=== PATIENT | male | born 1985 | race African-American/Black ===

== ENCOUNTER 2021-09-25 05:17 | Observation (INO) ==
--- NOTE | 2021-09-25 05:26 | DR.GENAD ---
HPI <Ruba Szmyanski - Last Filed: 09/25/21 07:59> Time Seen Time Seen by Provider: 09/25/21 05:26 HPI Comment HPI Comment: Brought in by ems after "freaking out" in car with his earlier this morning; started when his heart started racing and he felt lightheaded and shaky; still feeling this way with sob; no cp, cough, fever, chills, abd pain, n/v/d; admits doing cocaine yesterday and says he drinks quite a bit of caffeine especially mt dew, the last of which he had just prior to arrival ROS <Ruba Szymanski - Last Filed: 09/25/21 07:59> Review of Systems Constitutional: No Symptoms Reported Eyes: No Symptoms Reported ENTM: No Symptoms Reported Respiratoy: No Symptoms Reported Cardiovascular: No Symptoms Reported Gastrointestinal/Abdominal: No Symptoms Reported Genitourinary: No Symptoms Reported Neurological: No Symptoms Reported Musculoskeletal: No Symptoms Reported Integumentary: No Symptoms Reported Hematologic/Lymphatic: No Symptoms Reported Endocrine: No Symptoms Reported Psychiatric: No Symptoms Reported PE <Ruba Szymanski - Last Filed: 09/25/21 07:59> Vital Signs Vitals: Temperature 97.6 F Pulse Rate 108 Respiratory Rate 19 Blood Pressure 167/84 O2 Sat by Pulse Oximetry 100 General Limitations: No Limitations General Appearance: Alert and In No Apparent Distress Head Head Exam: Normal Inspection Eyes Eye exam: Normal Appearance ENT ENT Exam: Normal Exam External Ear Exam: Normal External Inspection TM/Canal Exam: Bilateral: Normal Nose Exam: Normal Nose Exam Mouth Exam: Normal Inspection Throat Exam: Normal Inspection Neck Neck Exam: Normal Inspection Chest Chest Inspection: Normal Inspection Respiratory Respiratory Exam: Normal Lung Sounds Bilat Respiratory Exam: Bilateral: Clear to Auscultation Cardiovascular Cardiovascular Exam: Regular Rate and Normal Rhythm Abdominal Exam Abdominal Exam: Normal Inspection, Normal Bowel Sounds and Soft Extremities Extremities Exam: Normal Inspection Back Back Exam: Normal Inspection Neurologic Neurological Exam: Alert and Oriented X3 Psychiatric Psychiatric Exam: Normal Affect and Normal Mood Skin Skin Exam: Warm, Dry, Intact and Normal Color <RUPALI SOBOWALE - Last Filed: 09/25/21 11:29> Vital Signs Vitals: Temperature 97.6 F Pulse Rate 108 Respiratory Rate 19 Blood Pressure 167/84 O2 Sat by Pulse Oximetry 100 COURSE <Ruba Szymanski - Last Filed: 09/25/21 07:59> Treatment Treatment: [address] Cotton: 36 y/o with palpitations, sob, anxiety and shakiness this morning after doing cocaine and methamphetamine yesterday; troponin positive; ativan 1mg given; sched for repeat troponin at 10 AM <RUPALI COTTON - Last Filed: 09/25/21 11:29> Education/Counseling Education/Counseling: Patient, Education and Counseling Educated On: Treatment, Diagnosis, Prognosis and Needs for Follow Up ROR <Ruba Szymanski - Last Filed: 09/25/21 07:59> Labs Reviewed Result Diagrams: 09/25/21 06:05 09/25/21 06:05 Laboratory: WBC 9.6 X10^3/uL (3.6-10.0) 09/25/21 06:05 RBC 5.48 X10^6/uL (4.7-6.0) 09/25/21 06:05 Hgb 15.3 g/dL (13.5-18.0) 09/25/21 06:05 Hct 46.6 % (42.0-54.0) 09/25/21 06:05 MCV 85.0 fL (80.0-100.0) 09/25/21 06:05 MCH 27.9 pg (27.0-34.0) 09/25/21 06:05 MCHC 32.8 g/dL (33.0-35.0) L 09/25/21 06:05 RDW 13.4 % (11.6-16.5) 09/25/21 06:05 Plt Count 244 X10^3/uL (150.0-450.0) 09/25/21 06:05 Plt Count Comment Adequate (ADEQUATE) 09/25/21 06:05 MPV 8.8 fL (7.4-11.0) 09/25/21 06:05 Neut % (Auto) 67.1 % (42.0-75.0) 09/25/21 06:05 Lymph % (Auto) 24.8 % (21.0-51.0) 09/25/21 06:05 [place] % (Auto) 5.9 % (0.0-13.0) 09/25/21 06:05 Eos % (Auto) 1.4 % (0.9-2.9) 09/25/21 06:05 Baso % (Auto) 0.8 % (0.2-1.0) 09/25/21 06:05 Neut # (Auto) 6.5 x10^3/uL (2.2-4.8) H 09/25/21 06:05 Lymph # (Auto) 2.4 X10^3/uL (1.3-2.9) 09/25/21 06:05 [place] # (Auto) 0.6 x10^3/uL (0.3-0.8) 09/25/21 06:05 Eos # (Auto) 0.1 x10^3/uL (0.0-0.2) 09/25/21 06:05 Baso # (Auto) 0.1 X10^3/uL (0.0-0.1) 09/25/21 06:05 Absolute Nucleated RBC 0.0 /100WBC 09/25/21 06:05 Plt Morphology Comment Normal (NORMAL) 09/25/21 06:05 RBC Morphology Normal (NORMAL) 09/25/21 06:05 Sodium 141 mmol/L (136-145) 09/25/21 06:05 Corrected Sodium 143 mmol/L (136-145) 09/25/21 06:05 Potassium 3.8 mmol/L (3.5-5.1) 09/25/21 06:05 Chloride 101 mmol/L (98-107) 09/25/21 06:05 Carbon Dioxide 23.9 mmol/L (21-32) 09/25/21 06:05 BUN 13 mg/dL (7-18) 09/25/21 06:05 Creatinine 1.22 mg/dL (0.70-1.30) 09/25/21 06:05 Est GFR (MDRD) Af Amer > 60 (>60) 09/25/21 06:05 Est GFR (MDRD) Non-Af > 60 (>60) 09/25/21 06:05 Glucose 167 mg/dL (65-99) H 09/25/21 06:05 Calcium 9.3 mg/dL (8.5-10.1) 09/25/21 06:05 Corrected Calcium TNP 09/25/21 06:05 Total Bilirubin 0.40 mg/dL (0.2-1.0) 09/25/21 06:05 AST 27 Units/L (15-37) 09/25/21 06:05 ALT 28 Units/L (12-78) 09/25/21 06:05 Alkaline Phosphatase 109 Units/L (46-116) 09/25/21 06:05 Creatine Kinase 335 Units/L (39-308) H 09/25/21 10:30 CK-MB (CK-2) 3.4 ng/mL (0-4.0) 09/25/21 10:30 CK/CKMB % Calc 1.0 % (<4) 09/25/21 10:30 Troponin I High Sens 409.5 ng/L (4.0-60.0) H* 09/25/21 10:30 Total Protein 7.5 g/dL (6.4-8.2) 09/25/21 06:05 Albumin 4.0 g/dL (3.4-5.0) 09/25/21 06:05 Globulin 3.5 g/dL (2.5-4.5) 09/25/21 06:05 Albumin/Globulin Ratio 1.1 Ratio (1.1-2.1) 09/25/21 06:05 Urine Opiates Screen Negative (NEG=<300) 09/25/21 05:55 Urine Methadone Screen Negative (NEG=<300) 09/25/21 05:55 Ur Barbiturates Screen Negative (NEG=<200) 09/25/21 05:55 Ur Phencyclidine Scrn Negative (NEG=<25) 09/25/21 05:55 Ur Amphetamines Screen Positive (NEG=<1000) 09/25/21 05:55 U Benzodiazepines Scrn Negative (NEG=<200) 09/25/21 05:55 Urine Cocaine Screen Positive (NEG=<300) 09/25/21 05:55 U Marijuana (THC) Screen Negative (NEG=<50) 09/25/21 05:55 SARS CoV-2 RNA Rapid KINGA Negative (NEGATIVE) 09/25/21 07:26 <ADEWUNMI SOBOWALE - Last Filed: 09/25/21 11:29> Labs Reviewed Laboratory: WBC 9.6 X10^3/uL (3.6-10.0) 09/25/21 06:05 RBC 5.48 X10^6/uL (4.7-6.0) 09/25/21 06:05 Hgb 15.3 g/dL (13.5-18.0) 09/25/21 06:05 Hct 46.6 % (42.0-54.0) 09/25/21 06:05 MCV 85.0 fL (80.0-100.0) 09/25/21 06:05 MCH 27.9 pg (27.0-34.0) 09/25/21 06:05 MCHC 32.8 g/dL (33.0-35.0) L 09/25/21 06:05 RDW 13.4 % (11.6-16.5) 09/25/21 06:05 Plt Count 244 X10^3/uL (150.0-450.0) 09/25/21 06:05 Plt Count Comment Adequate (ADEQUATE) 09/25/21 06:05 MPV 8.8 fL (7.4-11.0) 09/25/21 06:05 Neut % (Auto) 67.1 % (42.0-75.0) 09/25/21 06:05 Lymph % (Auto) 24.8 % (21.0-51.0) 09/25/21 06:05 [place] % (Auto) 5.9 % (0.0-13.0) 09/25/21 06:05 Eos % (Auto) 1.4 % (0.9-2.9) 09/25/21 06:05 Baso % (Auto) 0.8 % (0.2-1.0) 09/25/21 06:05 Neut # (Auto) 6.5 x10^3/uL (2.2-4.8) H 09/25/21 06:05 Lymph # (Auto) 2.4 X10^3/uL (1.3-2.9) 09/25/21 06:05 [place] # (Auto) 0.6 x10^3/uL (0.3-0.8) 09/25/21 06:05 Eos # (Auto) 0.1 x10^3/uL (0.0-0.2) 09/25/21 06:05 Baso # (Auto) 0.1 X10^3/uL (0.0-0.1) 09/25/21 06:05 Absolute Nucleated RBC 0.0 /100WBC 09/25/21 06:05 Plt Morphology Comment Normal (NORMAL) 09/25/21 06:05 RBC Morphology Normal (NORMAL) 09/25/21 06:05 Sodium 141 mmol/L (136-145) 09/25/21 06:05 Corrected Sodium 143 mmol/L (136-145) 09/25/21 06:05 Potassium 3.8 mmol/L (3.5-5.1) 09/25/21 06:05 Chloride 101 mmol/L (98-107) 09/25/21 06:05 Carbon Dioxide 23.9 mmol/L (21-32) 09/25/21 06:05 BUN 13 mg/dL (7-18) 09/25/21 06:05 Creatinine 1.22 mg/dL (0.70-1.30) 09/25/21 06:05 Est GFR (MDRD) Af Amer > 60 (>60) 09/25/21 06:05 Est GFR (MDRD) Non-Af > 60 (>60) 09/25/21 06:05 Glucose 167 mg/dL (65-99) H 09/25/21 06:05 Calcium 9.3 mg/dL (8.5-10.1) 09/25/21 06:05 Corrected Calcium TNP 09/25/21 06:05 Total Bilirubin 0.40 mg/dL (0.2-1.0) 09/25/21 06:05 AST 27 Units/L (15-37) 09/25/21 06:05 ALT 28 Units/L (12-78) 09/25/21 06:05 Alkaline Phosphatase 109 Units/L (46-116) 09/25/21 06:05 Creatine Kinase 335 Units/L (39-308) H 09/25/21 10:30 CK-MB (CK-2) 3.4 ng/mL (0-4.0) 09/25/21 10:30 CK/CKMB % Calc 1.0 % (<4) 09/25/21 10:30 Troponin I High Sens 409.5 ng/L (4.0-60.0) H* 09/25/21 10:30 Total Protein 7.5 g/dL (6.4-8.2) 09/25/21 06:05 Albumin 4.0 g/dL (3.4-5.0) 09/25/21 06:05 Globulin 3.5 g/dL (2.5-4.5) 09/25/21 06:05 Albumin/Globulin Ratio 1.1 Ratio (1.1-2.1) 09/25/21 06:05 Urine Opiates Screen Negative (NEG=<300) 09/25/21 05:55 Urine Methadone Screen Negative (NEG=<300) 09/25/21 05:55 Ur Barbiturates Screen Negative (NEG=<200) 09/25/21 05:55 Ur Phencyclidine Scrn Negative (NEG=<25) 09/25/21 05:55 Ur Amphetamines Screen Positive (NEG=<1000) 09/25/21 05:55 U Benzodiazepines Scrn Negative (NEG=<200) 09/25/21 05:55 Urine Cocaine Screen Positive (NEG=<300) 09/25/21 05:55 U Marijuana (THC) Screen Negative (NEG=<50) 09/25/21 05:55 SARS CoV-2 RNA Rapid KINGA Negative (NEGATIVE) 09/25/21 07:26 EKG Rate: 109 [place]: Normal Rhythm: NSR Block: None Hypertrophy: LVH ST: Normal Opioid <Ruba Szymanski - Last Filed: 09/25/21 07:59> Opioid Risk Tool Total: 0 Total Score Risk Category: Low Risk Copyright: [place] [facility]AY predicting aberrant behaviors <RUPALI COTTON - Last Filed: 09/25/21 11:29> Opioid Risk Tool Total: 0 Total Score Risk Category: Low Risk <Ruba Szymanski - Last Filed: 09/25/21 07:59> Diagnosis Discharge Problem: Palpitations, Anxiety, Methamphetamine abuse, Cocaine abuse Chest pain Qualifiers: Chest pain type: other chest pain Qualified Code(s): R07.89 - Other chest pain Instructions Forms: Precautions for COVID19 [facility] Social Distancing
[2021-09-25 05:37] VITALS: BMI 28.9
[2021-09-25 06:20] LABS: BASOPHILS # (AUTO) 0.1 X10^3/uL (0.0-0.1); BASOPHILS % (AUTO) 0.8 % (0.2-1.0); EOSINOPHILS # (AUTO) 0.1 x10^3/uL (0.0-0.2); EOSINOPHILS % (AUTO) 1.4 % (0.9-2.9); HEMATOCRIT 46.6 % (42.0-54.0); HEMOGLOBIN 15.3 g/dL (13.5-18.0); LYMPHOCYTES # (AUTO) 2.4 X10^3/uL (1.3-2.9); LYMPHOCYTES % (AUTO) 24.8 % (21.0-51.0); MEAN CORPUSCULAR HEMOGLOBIN 27.9 pg (27.0-34.0); MEAN CORPUSCULAR HGB CONC 32.8 g/dL (33.0-35.0); MEAN PLATELET VOLUME 8.8 fL (7.4-11.0); MONOCYTES # (AUTO) 0.6 x10^3/uL (0.3-0.8); MONOCYTES % (AUTO) 5.9 % (0.0-13.0); NEUTROPHILS # (AUTO) 6.5 x10^3/uL (2.2-4.8); NEUTROPHILS % (AUTO) 67.1 % (42.0-75.0); PLATELET COUNT 244 X10^3/uL (150.0-450.0); RED BLOOD COUNT 5.48 X10^6/uL (4.7-6.0); RED CELL DISTRIBUTION WIDTH 13.4 % (11.6-16.5); WHITE BLOOD COUNT 9.6 X10^3/uL (3.6-10.0)
[2021-09-25 06:23] LABS: ALANINE AMINOTRANSFERASE 28 Units/L (12-78); ALKALINE PHOSPHATASE 109 Units/L (46-116); ASPARTATE AMINO TRANSFERASE 27 Units/L (15-37); BLOOD UREA NITROGEN 13 mg/dL (7-18); CALCIUM 9.3 mg/dL (8.5-10.1); CARBON DIOXIDE 23.9 mmol/L (21-32); CHLORIDE 101 mmol/L (98-107); COR NA(FOR HYPERGLY) 143 mmol/L (136-145); CREATININE 1.22 mg/dL (0.70-1.30); SODIUM 141 mmol/L (136-145); TOTAL PROTEIN 7.5 g/dL (6.4-8.2); eGFR NON BLACK RACES > 60 (>60)
[2021-09-25] MEDS ORDERED: ATIVAN INJ 2 MG VIAL IVP STA (06:45)
[2021-09-25 06:52] LABS: PLATELET MORPHOLOGY COMMENT NORMAL (NORMAL)
[2021-09-25] MEDS ORDERED: ATIVAN INJ 2 MG VIAL ONE (07:08)
[2021-09-25 07:13] LABS: CREATINE KINASE MB 3.9 ng/mL (0-4.0)
[2021-09-25 11:10] LABS: CREATINE KINASE MB 3.4 ng/mL (0-4.0)
[2021-09-25] MEDS ORDERED: NITROSTAT SL PRN (13:12)
[2021-09-25] MEDS: NS 1,000 ML IV 1,000 ML IV SCH (13:17)
[2021-09-25] MEDS: CARDIZEM CD 120 MG 24-HR PO SCH (13:17)
[2021-09-25] MEDS ORDERED: NITRO-BID OINT 2% UD (E.R. USE ONLY) TOP PRN (13:20)
--- NOTE | 2021-09-25 14:49 | DR.H&P ---
H&P History & Physical for Day of: H&P Date: 09/25/21 Chief Complaint Chief Complaint: palpitations, anxiety, dyspnea Allergies Allergies Allergy/AdvReac Type Severity Reaction Status Date / Time No Known Drug Allergies Allergy Verified 09/25/21 05:37 History of Present Illness History of Present Illness: Mr Starkey is a 36y/o male with no pertinent medical hx presented to the ER after having an episode while driving to work. He felt "weird" with heart racing, shortness of breath and anxiety. He states it felt like a panic attack. It lasted 20 mins or so. Denied chest pain or pressure, no N/V, no diaphoresis. Patient reports having a panic attack in the p ast. Denies cardiac hx, no prior work up. He reports being told in the past that he has HTN but never treated. He has no PCP. He is a smoker and also uses cocaine, last use yesterday. He has never been hospitalized for chest pain or cocaine related incidents. ER work up - Patient was noted to be very anxious on arrival and given ativan. - Trop: elevated 75, 2nd: 409 CK elevated 396-> 335 Glucose 167 - UDS positive for cocaine +meth - EKG did not show any acute ST changes Patient was monitored on tele in the ER for a while. Dr Cason was consulted and advised Plan: Admit to telemetry, repeat EKG and trend cardiac enzymes. Echo ordered. Add CXR. Follow Dr Cason's recommendations. Discussed treatment plan with patient. Denies chest pain or pressure, SOB at this time. Monitor AM labs and imaging. Past Medical History Past Medical History: Anxiety and Hypertension Past Surgical History Surgical History: No History Family History Family Medical History: [place] Social History Does patient currently use any type of tobacco product: Yes Have you used tobacco products in the last 12 months: Yes Type of Tobacco Use: Cigarettes Packs per day or dips/chews per day: 1 Does any household member use tobacco: No Alcohol Use: Other Drug Use: Cocaine and Methamphetamine Prescription drug monitoring program results: PDMP reviewed and no concerns identified Medications Home Medications: No Known Drug Allergies Allergy (Verified 09/25/21 05:37) CONTINUE taking the following medications NK 09/25/21 [History] Labs Result Diagrams: 09/25/21 06:05 09/25/21 06:05 Labs: Laboratory WBC 9.6 X10^3/uL (3.6-10.0) 09/25/21 06:05 RBC 5.48 X10^6/uL (4.7-6.0) 09/25/21 06:05 Hgb 15.3 g/dL (13.5-18.0) 09/25/21 06:05 Hct 46.6 % (42.0-54.0) 09/25/21 06:05 MCV 85.0 fL (80.0-100.0) 09/25/21 06:05 MCH 27.9 pg (27.0-34.0) 09/25/21 06:05 MCHC 32.8 g/dL (33.0-35.0) L 09/25/21 06:05 RDW 13.4 % (11.6-16.5) 09/25/21 06:05 Plt Count 244 X10^3/uL (150.0-450.0) 09/25/21 06:05 Plt Count Comment Adequate (ADEQUATE) 09/25/21 06:05 MPV 8.8 fL (7.4-11.0) 09/25/21 06:05 Neut % (Auto) 67.1 % (42.0-75.0) 09/25/21 06:05 Lymph % (Auto) 24.8 % (21.0-51.0) 09/25/21 06:05 [place] % (Auto) 5.9 % (0.0-13.0) 09/25/21 06:05 Eos % (Auto) 1.4 % (0.9-2.9) 09/25/21 06:05 Baso % (Auto) 0.8 % (0.2-1.0) 09/25/21 06:05 Neut # (Auto) 6.5 x10^3/uL (2.2-4.8) H 09/25/21 06:05 Lymph # (Auto) 2.4 X10^3/uL (1.3-2.9) 09/25/21 06:05 [place] # (Auto) 0.6 x10^3/uL (0.3-0.8) 09/25/21 06:05 Eos # (Auto) 0.1 x10^3/uL (0.0-0.2) 09/25/21 06:05 Baso # (Auto) 0.1 X10^3/uL (0.0-0.1) 09/25/21 06:05 Absolute Nucleated RBC 0.0 /100WBC 09/25/21 06:05 Plt Morphology Comment Normal (NORMAL) 09/25/21 06:05 RBC Morphology Normal (NORMAL) 09/25/21 06:05 Sodium 141 mmol/L (136-145) 09/25/21 06:05 Corrected Sodium 143 mmol/L (136-145) 09/25/21 06:05 Potassium 3.8 mmol/L (3.5-5.1) 09/25/21 06:05 Chloride 101 mmol/L (98-107) 09/25/21 06:05 Carbon Dioxide 23.9 mmol/L (21-32) 09/25/21 06:05 BUN 13 mg/dL (7-18) 09/25/21 06:05 Creatinine 1.22 mg/dL (0.70-1.30) 09/25/21 06:05 Est GFR (MDRD) Af Amer > 60 (>60) 09/25/21 06:05 Est GFR (MDRD) Non-Af > 60 (>60) 09/25/21 06:05 Glucose 167 mg/dL (65-99) H 09/25/21 06:05 Calcium 9.3 mg/dL (8.5-10.1) 09/25/21 06:05 Corrected Calcium TNP 09/25/21 06:05 Total Bilirubin 0.40 mg/dL (0.2-1.0) 09/25/21 06:05 AST 27 Units/L (15-37) 09/25/21 06:05 ALT 28 Units/L (12-78) 09/25/21 06:05 Alkaline Phosphatase 109 Units/L (46-116) 09/25/21 06:05 Creatine Kinase 335 Units/L (39-308) H 09/25/21 10:30 CK-MB (CK-2) 3.4 ng/mL (0-4.0) 09/25/21 10:30 CK/CKMB % Calc 1.0 % (<4) 09/25/21 10:30 Troponin I High Sens 409.5 ng/L (4.0-60.0) H* 09/25/21 10:30 Total Protein 7.5 g/dL (6.4-8.2) 09/25/21 06:05 Albumin 4.0 g/dL (3.4-5.0) 09/25/21 06:05 Globulin 3.5 g/dL (2.5-4.5) 09/25/21 06:05 Albumin/Globulin Ratio 1.1 Ratio (1.1-2.1) 09/25/21 06:05 Urine Opiates Screen Negative (NEG=<300) 09/25/21 05:55 Urine Methadone Screen Negative (NEG=<300) 09/25/21 05:55 Ur Barbiturates Screen Negative (NEG=<200) 09/25/21 05:55 Ur Phencyclidine Scrn Negative (NEG=<25) 09/25/21 05:55 Ur Amphetamines Screen Positive (NEG=<1000) 09/25/21 05:55 U Benzodiazepines Scrn Negative (NEG=<200) 09/25/21 05:55 Urine Cocaine Screen Positive (NEG=<300) 09/25/21 05:55 U Marijuana (THC) Screen Negative (NEG=<50) 09/25/21 05:55 SARS CoV-2 RNA Rapid KINGA Negative (NEGATIVE) 09/25/21 07:26 Review of Systems Constitutional: No Symptoms Reported Eyes: No Symptoms Reported ENT: No Symptoms Reported Respiratory: Shortness of Breath Cardiovascular: Palpitations Gastrointestinal: No Symptoms Reported Genitourinary: No Symptoms Reported Musculoskeletal: No Symptoms Reported Skin: No Symptoms Reported Neurological: No Symptoms Reported Physical Exam Vital Signs: Temperature 97.6 F Pulse Rate 100 Respiratory Rate 24 Blood Pressure 162/83 O2 Sat by Pulse Oximetry 100 Oriented: Normal Eyes: Normal Ear: Normal Nose: Normal Throat: Normal Respiratory: Clear Throughout Cardiovascular: Normal and Tachycardia; negative Edema Auscultation: Bowel Sounds: Normal Palpation: Normal Tenderness: Normal Skin: Normal Musculoskeletal: Normal Psychiatric: Normal Mood Description: Calm Affect: Normal Speech Pattern: Clear and Appropriate Assessment/Plan (1) Palpitations: Status: Acute (2) Anxiety: Status: Acute (3) Methamphetamine abuse: Status: Acute (4) Cocaine abuse: Status: Acute (5) HTN (hypertension): Qualifiers: Hypertension type: primary hypertension Qualified Code(s): I10 - Essential (primary) hypertension Status: Acute (6) Tobacco use: Status: Acute Review H&P Reviewed: Yes Patient was examined?: Yes
[2021-09-25 16:25] LABS: HEMOGLOBIN A1C 5.5 %
[2021-09-25 16:53] LABS: CKMB % 1.2 % (<4); CREATINE KINASE MB 3.6 ng/mL (0-4.0)
[2021-09-25 17:03] LABS: CHOL/HDL RATIO 2.8 (0.0-5.0)
--- NOTE | 2021-09-25 17:07 | RAD ---
EXAM: CHEST X-RAYHISTORY: Shortness of breath. Abnormal cardiac enzymes.TECHNIQUE: AP CXR dated September 25, 2021 at 2:50 PM.COMPARISON: None available.FINDINGS:The heart size and mediastinum are within normal limits. The lung kebede and costophrenic angles are clear. There is no acute parenchymal infiltrate, pleural effusion, or pneumothorax seen. The visualized bony structures are within normal limits.IMPRESSION:1. No evidence for acute cardiopulmonary disease seen.Electronically signed by: Anshu Aiken (Sep 25, 2021 17:05:50)
[2021-09-25] MEDS ORDERED: TYLENOL 325 MG TAB PO PRN (20:50)
[2021-09-25 23:15] LABS: CKMB % 0.9 % (<4); CREATINE KINASE MB 2.2 ng/mL (0-4.0)
[2021-09-26] MEDS: NS 1,000 ML IV 1,000 ML IV SCH (01:05)
[2021-09-26 06:56] LABS: ALANINE AMINOTRANSFERASE 25 Units/L (12-78); ALBUMIN 3.2 g/dL (3.4-5.0); ALKALINE PHOSPHATASE 92 Units/L (46-116); ASPARTATE AMINO TRANSFERASE 22 Units/L (15-37); BLOOD UREA NITROGEN 13 mg/dL (7-18); CALCIUM 8.6 mg/dL (8.5-10.1); CARBON DIOXIDE 29.1 mmol/L (21-32); CHLORIDE 106 mmol/L (98-107); COR CA(FOR HYPOALB) 9.2 mg/dL (8.5-10.1); CREATININE 0.87 mg/dL (0.70-1.30); SODIUM 141 mmol/L (136-145); TOTAL PROTEIN 6.3 g/dL (6.4-8.2); eGFR NON BLACK RACES > 60 (>60)
[2021-09-26 06:58] LABS: BASOPHILS % (AUTO) 0.5 % (0.2-1.0); EOSINOPHILS # (AUTO) 0.2 x10^3/uL (0.0-0.2); EOSINOPHILS % (AUTO) 3.3 % (0.9-2.9); HEMATOCRIT 41.2 % (42.0-54.0); HEMOGLOBIN 13.7 g/dL (13.5-18.0); LYMPHOCYTES # (AUTO) 1.5 X10^3/uL (1.3-2.9); LYMPHOCYTES % (AUTO) 22.6 % (21.0-51.0); MEAN CORPUSCULAR HEMOGLOBIN 27.9 pg (27.0-34.0); MEAN CORPUSCULAR HGB CONC 33.2 g/dL (33.0-35.0); MEAN CORPUSCULAR VOLUME 84.1 fL (80.0-100.0); MEAN PLATELET VOLUME 8.9 fL (7.4-11.0); MONOCYTES # (AUTO) 0.5 x10^3/uL (0.3-0.8); MONOCYTES % (AUTO) 7.6 % (0.0-13.0); NEUTROPHILS # (AUTO) 4.4 x10^3/uL (2.2-4.8); PLATELET COUNT 203 X10^3/uL (150.0-450.0); RED CELL DISTRIBUTION WIDTH 13.4 % (11.6-16.5); WHITE BLOOD COUNT 6.7 X10^3/uL (3.6-10.0)
[2021-09-26 08:07] LABS: PLATELET MORPHOLOGY COMMENT ABNORMAL (NORMAL)
[2021-09-26 08:08] LABS: GIANT PLATELET FEW
--- NOTE | 2021-09-26 08:20 | W.DIS.FURT ---
Summary of Discharge Admission Diagnosis Patient Problems (Updated 09/25/21 @ 15:19 by Angelita Betancourt) Chest pain (Acute) R07.9 Palpitations (Acute) R00.2 Anxiety (Acute) F41.9 Methamphetamine abuse (Acute) F15.10 Cocaine abuse (Acute) F14.10 Vital Signs: Vital Signs (72 hours) 09/25/21 05:18 09/25/21 06:31 09/25/21 07:01 Temperature 97.6 F Pulse Rate 128 H Respiratory Rate 16 Blood Pressure 141/86 152/111 156/60 O2 Sat by Pulse Oximetry 100 09/25/21 07:11 09/25/21 07:13 09/25/21 07:15 Temperature Pulse Rate 124 H 123 H 121 H Respiratory Rate 30 H 66 H 94 H Blood Pressure 167/84 O2 Sat by Pulse Oximetry 100 100 100 09/25/21 07:30 09/25/21 07:45 09/25/21 08:00 Temperature Pulse Rate 123 H 122 H 123 H Respiratory Rate 28 H 21 45 H Blood Pressure O2 Sat by Pulse Oximetry 100 99 100 09/25/21 08:15 09/25/21 08:30 09/25/21 08:45 Temperature Pulse Rate 116 H 113 H 115 H Respiratory Rate 23 35 H 16 Blood Pressure O2 Sat by Pulse Oximetry 96 99 99 09/25/21 09:00 09/25/21 09:15 09/25/21 09:30 Temperature Pulse Rate 113 H 111 H 112 H Respiratory Rate 26 H 24 20 Blood Pressure O2 Sat by Pulse Oximetry 99 100 100 09/25/21 09:45 09/25/21 10:00 09/25/21 10:15 Temperature Pulse Rate 112 H 116 H 110 H Respiratory Rate 35 H 30 H 29 H Blood Pressure O2 Sat by Pulse Oximetry 100 100 100 09/25/21 10:30 09/25/21 10:39 09/25/21 10:45 Temperature Pulse Rate 108 H 109 H 108 H Respiratory Rate 19 21 32 H Blood Pressure 139/72 O2 Sat by Pulse Oximetry 100 100 100 09/25/21 11:00 09/25/21 11:15 09/25/21 11:30 Temperature Pulse Rate 104 H 101 H 104 H Respiratory Rate 22 33 H 22 Blood Pressure 145/72 146/71 O2 Sat by Pulse Oximetry 99 100 100 09/25/21 11:45 09/25/21 12:00 09/25/21 12:15 Temperature Pulse Rate 105 H 102 H 100 H Respiratory Rate 39 H 22 24 Blood Pressure 162/83 O2 Sat by Pulse Oximetry 100 100 100 09/25/21 12:42 09/25/21 13:00 09/25/21 14:00 Temperature 98.1 F Pulse Rate 94 H 91 H 80 Respiratory Rate 19 14 16 Blood Pressure 162/79 158/79 125/55 O2 Sat by Pulse Oximetry 99 99 98 09/25/21 15:00 09/25/21 16:00 09/25/21 17:00 Temperature 98.2 F Pulse Rate 89 90 94 H Respiratory Rate 14 14 22 Blood Pressure 139/79 151/82 144/74 O2 Sat by Pulse Oximetry 100 100 100 09/25/21 18:00 09/25/21 19:00 09/25/21 20:00 Temperature 98.8 F Pulse Rate 79 81 60 Respiratory Rate 16 15 15 Blood Pressure 154/72 153/73 127/60 O2 Sat by Pulse Oximetry 94 L 100 99 09/25/21 21:00 09/25/21 21:13 09/25/21 22:00 Temperature Pulse Rate 72 71 Respiratory Rate 17 14 14 Blood Pressure 143/71 150/65 O2 Sat by Pulse Oximetry 100 100 09/25/21 22:13 09/25/21 23:00 09/26/21 00:00 Temperature 98.8 F Pulse Rate 58 L 76 Respiratory Rate 15 15 19 Blood Pressure 117/56 113/81 O2 Sat by Pulse Oximetry 100 100 09/26/21 01:00 09/26/21 02:00 09/26/21 03:00 Temperature Pulse Rate 57 L 64 75 Respiratory Rate 13 15 14 Blood Pressure 135/60 131/60 134/67 O2 Sat by Pulse Oximetry 100 100 100 09/26/21 04:00 09/26/21 05:00 09/26/21 06:00 Temperature 98.8 F Pulse Rate 70 67 55 L Respiratory Rate 13 15 13 Blood Pressure 115/56 119/63 121/66 O2 Sat by Pulse Oximetry 99 98 99 09/26/21 07:00 09/26/21 08:00 Temperature 98.3 F Pulse Rate 68 66 Respiratory Rate 17 15 Blood Pressure 120/64 122/81 O2 Sat by Pulse Oximetry 98 95 Labs: Laboratory Last Values WBC 6.7 X10^3/uL (3.6-10.0) 09/26/21 06:34 RBC 4.90 X10^6/uL (4.7-6.0) 09/26/21 06:34 Hgb 13.7 g/dL (13.5-18.0) 09/26/21 06:34 Hct 41.2 % (42.0-54.0) L 09/26/21 06:34 MCV 84.1 fL (80.0-100.0) 09/26/21 06:34 MCH 27.9 pg (27.0-34.0) 09/26/21 06:34 MCHC 33.2 g/dL (33.0-35.0) 09/26/21 06:34 RDW 13.4 % (11.6-16.5) 09/26/21 06:34 Plt Count 203 X10^3/uL (150.0-450.0) 09/26/21 06:34 Plt Count Comment Adequate (ADEQUATE) 09/26/21 06:34 MPV 8.9 fL (7.4-11.0) 09/26/21 06:34 Neut % (Auto) 66.0 % (42.0-75.0) 09/26/21 06:34 Lymph % (Auto) 22.6 % (21.0-51.0) 09/26/21 06:34 [place] % (Auto) 7.6 % (0.0-13.0) 09/26/21 06:34 Eos % (Auto) 3.3 % (0.9-2.9) H 09/26/21 06:34 Baso % (Auto) 0.5 % (0.2-1.0) 09/26/21 06:34 Neut # (Auto) 4.4 x10^3/uL (2.2-4.8) 09/26/21 06:34 Lymph # (Auto) 1.5 X10^3/uL (1.3-2.9) 09/26/21 06:34 [place] # (Auto) 0.5 x10^3/uL (0.3-0.8) 09/26/21 06:34 Eos # (Auto) 0.2 x10^3/uL (0.0-0.2) 09/26/21 06:34 Baso # (Auto) 0.0 X10^3/uL (0.0-0.1) 09/26/21 06:34 Absolute Nucleated RBC 0.1 /100WBC 09/26/21 06:34 Giant Platelets Few 09/26/21 06:34 Plt Morphology Comment Abnormal (NORMAL) 09/26/21 06:34 RBC Morphology Normal (NORMAL) 09/26/21 06:34 Sodium 141 mmol/L (136-145) 09/26/21 06:34 Corrected Sodium TNP 09/26/21 06:34 Potassium 4.4 mmol/L (3.5-5.1) 09/26/21 06:34 Chloride 106 mmol/L (98-107) 09/26/21 06:34 Carbon Dioxide 29.1 mmol/L (21-32) 09/26/21 06:34 BUN 13 mg/dL (7-18) 09/26/21 06:34 Creatinine 0.87 mg/dL (0.70-1.30) 09/26/21 06:34 Est GFR (MDRD) Af Amer > 60 (>60) 09/26/21 06:34 Est GFR (MDRD) Non-Af > 60 (>60) 09/26/21 06:34 Glucose 92 mg/dL (65-99) 09/26/21 06:34 Hemoglobin A1c 5.5 % 09/25/21 15:52 Calcium 8.6 mg/dL (8.5-10.1) 09/26/21 06:34 Corrected Calcium 9.2 mg/dL (8.5-10.1) 09/26/21 06:34 Total Bilirubin 0.90 mg/dL (0.2-1.0) 09/26/21 06:34 AST 22 Units/L (15-37) 09/26/21 06:34 ALT 25 Units/L (12-78) 09/26/21 06:34 Alkaline Phosphatase 92 Units/L (46-116) 09/26/21 06:34 Creatine Kinase 242 Units/L (39-308) 09/25/21 22:30 CK-MB (CK-2) 2.2 ng/mL (0-4.0) 09/25/21 22:30 CK/CKMB % Calc 0.9 % (<4) 09/25/21 22:30 Troponin I High Sens 148.2 ng/L (4.0-60.0) H* 09/26/21 06:34 Total Protein 6.3 g/dL (6.4-8.2) L 09/26/21 06:34 Albumin 3.2 g/dL (3.4-5.0) L 09/26/21 06:34 Globulin 3.1 g/dL (2.5-4.5) 09/26/21 06:34 Albumin/Globulin Ratio 1.0 Ratio (1.1-2.1) L 09/26/21 06:34 Triglycerides 50 mg/dL (0-150) 09/25/21 15:52 Cholesterol 132 mg/dL (0-200) 09/25/21 15:52 LDL Cholesterol, Calc 74 mg/dL (0-100) 09/25/21 15:52 HDL Cholesterol 48 mg/dL (40-60) 09/25/21 15:52 Cholesterol/HDL Ratio 2.8 (0.0-5.0) 09/25/21 15:52 Urine Opiates Screen Negative (NEG=<300) 09/25/21 05:55 Urine Methadone Screen Negative (NEG=<300) 09/25/21 05:55 Ur Barbiturates Screen Negative (NEG=<200) 09/25/21 05:55 Ur Phencyclidine Scrn Negative (NEG=<25) 09/25/21 05:55 Ur Amphetamines Screen Positive (NEG=<1000) 09/25/21 05:55 U Benzodiazepines Scrn Negative (NEG=<200) 09/25/21 05:55 Urine Cocaine Screen Positive (NEG=<300) 09/25/21 05:55 U Marijuana (THC) Screen Negative (NEG=<50) 09/25/21 05:55 SARS CoV-2 RNA Rapid KINGA Negative (NEGATIVE) 09/25/21 07:26 Reason For Visit: ELEVATED CARDIAC ENZYMES, SUBSTANCE ABUSE Discharge Diagnosis All Active Problems (Updated 09/25/21 @ 15:19 by Angelita Betancourt) Tobacco use (Acute) HTN (hypertension) (Acute) Chest pain (Acute) Palpitations (Acute) Anxiety (Acute) Methamphetamine abuse (Acute) Cocaine abuse (Acute) Plan of Treatment: Continue with present treatment and follow up plan. Pt is to keep follow up appointment as instructed and take medications as ordered. Discharge Medications Discharge Medications: No Known Drug Allergies Allergy (Verified 09/25/21 05:37) CONTINUE taking the following medications NK 09/25/21 [History] New Prescriptions diltiazem HCl 120 mg PO DAILY 30 Days #30 cap 09/26/21 [Rx] Discharge Plan Discharge Plan Patient Disposition: HOME, SELF-CARE Condition: Stable Health Concerns: Post Hospitalization: new medications and changes needed to prevent readmission or further decline. Pt educated and given instructions on all concerns. Plan of Treatment: Continue with present treatment and follow up plan. Pt is to keep follow up appointment as instructed and take medications as ordered. Prescriptions: New diltiazem HCl 120 mg Capsule,Extended Release 24hr 120 mg PO DAILY 30 Days Qty: 30 RF: 0 No Action NK RF: 0 Orders to Discharge Patient Discharge Orders: Discharge (Routine); Ordered 09/26/21 Ordered By: Angelita Betancourt Follow ups/Referrals Follow ups/Referrals: Rony Cason [STAFF PHYSICIAN] - 2 WEEKS (hospital follow up ) RACQUEL HUNG [Primary Care Provider] - 1 WEEK (Hospital follow up ) Instructions Instructions: Cocaine Use Disorder, Amphetamines Use Disorder, Hypertension, Adult, [id number], Heart Attack, Managing Anxiety, Adult, Managing Your Hypertension, Steps to Quit Smoking Stand Alone Forms: Excuse From Work or School, Precautions for COVID19, [facility], Patient Portal, Social Distancing
[2021-09-26 09:07] VITALS: BP 140/65
[2021-09-26] MEDS: CARDIZEM CD 120 MG 24-HR PO SCH (09:18)
== END 2021-09-26 10:10 | disposition home or self-care (01) ==
LOC: SUPCPDRO → ICU 05:17 → ER 05:17 → ICU 12:28
PROVIDERS: ADMIT Internal Medicine; ATTEND Internal Medicine
DX: Z20.822 Contact with and (suspected) exposure to COVID-19; R07.89 Other chest pain; I10 Essential (primary) hypertension; Z72.0 Tobacco use; F14.10 Cocaine abuse, uncomplicated; R06.02 Shortness of breath; R00.2 Palpitations; F15.10 Other stimulant abuse, uncomplicated; F41.8 Other specified anxiety disorders